=== PATIENT | female | born 1950 | race African-American/Black ===

== ENCOUNTER → 2023-04-08 | Day surgery (SDC) | payer MEDICARE, MEDICAID ==
[~2023-04-08] VITALS: Ht 149.9 cm; Wt 56.7 kg
[~2023-04-08] MED LIST: AMLO5TAB88 PO; ANAS1TAB49 PO; BALANCED SALT IRRIG SOLN COMB1 500ML OP ONE; CYCLOPENTOLATE HCL 1% OPHTH DROPS 2ML LEFTEYE ONE; FENTANYL CITRATE/PF 50MCG/ML 2ML VIAL ONE; HYALURONATE SODIUM 10 MG/ML 0.55ML SYRINGE IO ONE; KETOROLAC 30MG/ML VIAL ONE; LACTATED RINGERS 1,000 ML IV SCH; LISI30TA36 PO; METO25TA6 PO; MIDAZOLAM HCL 2 MG/2 ML VIAL ONE; PHENYLEPHRINE HCL 10% OPHTH DROPS 5ML LEFTEYE ONE; TRAZ-251 PO; TROPICAMIDE 1% OPHTH DROPS 15ML LEFTEYE ONE; UMEC1DIS IH; [UNRECOGNIZED DRUG - OTHER] PO
== END | disposition home or self-care (01) ==
LOC: OR 06:22
PROVIDERS: ATTEND Ophthalmology
DX: H25.89 Other age-related cataract (principal); I10 Essential (primary) hypertension; J44.9 Chronic obstructive pulmonary disease, unspecified; Z87.891 Personal history of nicotine dependence; Z79.899 Other long term (current) drug therapy; Z98.890 Other specified postprocedural states; Z91.013 Allergy to seafood; Z88.8 Allergy status to other drugs, medicaments and biological substances
CPT/HCPCS: 66984; J3010; J1885; J2250; J3490; A4217; Z7610 ×17; V2632